=== PATIENT | male | born 1950 | race Caucasian/White ===

== ENCOUNTER 2018-04-02 06:55 | Day surgery (SDC) | payer MEDICARE, MEDICAID ==
[~2018-04-02] VITALS: Ht 167.6 cm; Wt 57.6 kg
[2018-04-02] MEDS ORDERED: IODIXANOL 320MG/ML 100ML BTL IV ONE (07:11)
[2018-04-02] MEDS ORDERED: LIDOCAINE 2%HCL (LOCAL ANESTH.) INJ 20ML MDV ONE (07:11)
[2018-04-02] MEDS ORDERED: fentaNYL CITRATE 100 MCG/2 ML VL ONE (07:39)
[2018-04-02] MEDS ORDERED: ANGIOMAX 250 MG VIAL IV ONE (07:39)
[2018-04-02] MEDS ORDERED: VERAPAMIL 2.5MG/ML INJ 2ML VIAL IV ONE (07:39)
[2018-04-02] MEDS ORDERED: SODIUM CHL 0.9% 50 ML ONE (07:40)
[2018-04-02] MEDS ORDERED: MIDAZOLAM HCL 1MG/1ML-2 ML VIAL ONE (07:40)
[2018-04-02] MEDS ORDERED: ATROPINE SULF 1 MG/10ml SYR ONE (08:29)
[2018-04-02] MEDS ORDERED: CLOPIDOGREL 300 MG TAB ONE (08:36)
[2018-04-02] MEDS ORDERED: ASPirin 81 mg TAB ONE (08:36)
[2018-04-02] MEDS ORDERED: ACETAMINOPHEN 500 MG TAB PO PRN (10:30)
== END 2018-04-02 15:05 | disposition home or self-care (01) ==
LOC: CATH 06:55
PROVIDERS: ATTEND Internal Medicine
DX: I25.10 Atherosclerotic heart disease of native coronary artery without angina pectoris (principal); I21.3 ST elevation (STEMI) myocardial infarction of unspecified site; F10.99 Alcohol use, unspecified with unspecified alcohol-induced disorder; I10 Essential (primary) hypertension; F17.210 Nicotine dependence, cigarettes, uncomplicated; Z79.82 Long term (current) use of aspirin; Z82.49 Family history of ischemic heart disease and other diseases of the circulatory system; Z79.899 Other long term (current) drug therapy
CPT/HCPCS: 92928; 93005; 93454; A6257; C1769; C1874; C1887; J0583; J1644; J2250; J3010; J7030; Q9967; 99152; 99153